=== PATIENT | female | born 1945 | race Caucasian/White ===

== ENCOUNTER 2016-03-22 10:15 | Inpatient (IN) | payer OTHER ==
[~2016-03-22] VITALS: Ht 161.3 cm; Wt 144.0 kg
[~2016-03-22 10:15] MED LIST: AMLODIPINE BESY10 MG PO; ASPIR-LOW81 MG PO; ATENOLOL50 MG PO; ATORVASTATIN CA80 MG PO; COUMADIN1 MG PO; FLOVENT DISKUS1 DIS2 IH; FUROSEMIDE40 MG PO; GLIPIZIDE XL10 MG PO; HUMULIN N100 UNITS/ SC; HYDROCORTISONE60 GM TP; LIPITOR80 MG PO; LOSARTAN POTAS100 MG PO; LOVENOX120 MG/0.8 SC
[2016-03-22 11:13] LABS: POINT-OF-CARE METER ID UU13113778
[2016-03-22 13:09] LABS: HEMATOCRIT 39.6 % (36.0-46.0); MCH 28.5 PG (29.0-34.0); MCHC 32.1 G/DL (30.0-36.0); MCV 88.8 FL (83-99); MEAN PLAT.VOLUME 11.9 uM^3 (9.5-12.4); PLATELET COUNT 162 K/uL (156-360); RBC DIS.WIDTH-CV 14.5 % (11.8-14.6); RBC DIS.WIDTH-SD 45.6 % (39-53); RED BLOOD COUNT 4.46 M/uL (3.80-5.20); WHITE BLOOD COUNT 8.3 K/uL (4.1-10.2)
[2016-03-22 13:27] LABS: CHLORIDE 103 mEq/L (99-109); SODIUM 141 mEq/L (136-147)
[2016-03-22 13:29] LABS: GLUCOSE 210 mg/dL (70-99)
[2016-03-22 13:30] LABS: ANION GAP 12 MEQ/L (2-14)
[2016-03-22 13:33] LABS: GFR ESTIMATE (CALCULATED) 31 mL/min/
[2016-03-22 13:34] LABS: UREA NITROGEN (BUN) 37 mg/dL (9-23)
[2016-03-22 13:54] LABS: TROP-I INTERPRETATION NEGATIVE; TROPONIN-I 0.19 ng/mL (0.0-0.30)
[2016-03-22 17:38] LABS: PROTHROMBIN TIME 10.3 (9.2-11.2)
[2016-03-22 17:52] LABS: PTT 18.9 (25-32)
[2016-03-22] MEDS ORDERED: LO-DOSE ASPIRIN81 M1 PO (18:25)
[2016-03-22] MEDS ORDERED: HYDROCHLOROTH12.5 M3 PO (18:27)
[2016-03-22 20:25] VITALS: BP 173/83
[2016-03-23] VITALS (8 sets, daily range): BP systolic 118–146; BP diastolic 51–98
[2016-03-23 08:25] LABS: HEMATOCRIT 39.6 % (36.0-46.0); MCH 28.2 PG (29.0-34.0); MCHC 31.6 G/DL (30.0-36.0); MCV 89.2 FL (83-99); MEAN PLAT.VOLUME 12.4 uM^3 (9.5-12.4); PLATELET COUNT 188 K/uL (156-360); RBC DIS.WIDTH-CV 14.7 % (11.8-14.6); RBC DIS.WIDTH-SD 47.6 % (39-53); RED BLOOD COUNT 4.44 M/uL (3.80-5.20); WHITE BLOOD COUNT 9.2 K/uL (4.1-10.2)
[2016-03-23 08:33] LABS: INTER. NORMALIZED RATIO 1.1; PROTHROMBIN TIME 10.8 (9.2-11.2)
[2016-03-23 09:24] LABS: TROP-I INTERPRETATION NEGATIVE; TROPONIN-I 0.21 ng/mL (0.0-0.30)
[2016-03-23 11:45] LABS: ALKALINE PHOSPHATASE 118 IU/L (3-129); ANION GAP 10 MEQ/L (2-14); CHLORIDE 103 MEQ/L (99-109); GFR ESTIMATE (CALCULATED) 39 mL/min/; GLUCOSE 82 mg/dL (70-99); POTASSIUM 4.2 MEQ/L (3.7-5.4); SAMPLE HEMOLYSIS CHECK 0; SAMPLE ICTERIC CHECK 0; SAMPLE LIPEMIA CHECK 0; SODIUM 141 MEQ/L (136-147); TOTAL BILIRUBIN 0.5 MG/DL (0.0-1.0); UREA NITROGEN (BUN) 31 mg/dL (9-23)
[2016-03-24 03:39] VITALS: BP 130/61
[2016-03-24 04:31] LABS: HEMATOCRIT 37.5 % (36.0-46.0); MCH 28.2 PG (29.0-34.0); MCHC 31.5 G/DL (30.0-36.0); MCV 89.7 FL (83-99); MEAN PLAT.VOLUME 12.5 uM^3 (9.5-12.4); PLATELET COUNT 196 K/uL (156-360); RBC DIS.WIDTH-CV 14.7 % (11.8-14.6); RBC DIS.WIDTH-SD 46.7 % (39-53); RED BLOOD COUNT 4.18 M/uL (3.80-5.20); WHITE BLOOD COUNT 9.6 K/uL (4.1-10.2)
[2016-03-24 04:38] LABS: INTER. NORMALIZED RATIO 1.1
[2016-03-24 04:55] LABS: CHLORIDE 103 mEq/L (99-109); POTASSIUM 4.1 mEq/L (3.7-5.4); SODIUM 142 mEq/L (136-147)
[2016-03-24 04:59] LABS: ANION GAP 12 MEQ/L (2-14)
[2016-03-24 05:00] LABS: TOTAL BILIRUBIN 0.5 mg/dL (0.0-1.0)
[2016-03-24 05:01] LABS: ALKALINE PHOSPHATASE 130 IU/L (3-129); GFR ESTIMATE (CALCULATED) 28 mL/min/
[2016-03-24 05:02] LABS: UREA NITROGEN (BUN) 39 mg/dL (9-23)
[2016-03-24 05:06] LABS: GLUCOSE 156 mg/dL (70-99)
[2016-03-24 07:41] VITALS: BP 169/72
[2016-03-24 11:26] VITALS: BP 144/61
[2016-03-24 16:12] VITALS: BP 106/64
[2016-03-24 20:09] VITALS: BP 132/74
[2016-03-24 23:11] VITALS: BP 122/84
[2016-03-25 04:01] VITALS: BP 139/65
[2016-03-25 07:08] LABS: HEMATOCRIT 36.3 % (36.0-46.0); MCH 28.1 PG (29.0-34.0); MCHC 31.1 G/DL (30.0-36.0); MCV 90.3 FL (83-99); MEAN PLAT.VOLUME 12.8 uM^3 (9.5-12.4); PLATELET COUNT 140 K/uL (156-360); RBC DIS.WIDTH-SD 48.8 % (39-53); RED BLOOD COUNT 4.02 M/uL (3.80-5.20); WHITE BLOOD COUNT 7.5 K/uL (4.1-10.2)
[2016-03-25 07:41] LABS: INTER. NORMALIZED RATIO 1.7; PTT 86.3 (25-32)
[2016-03-25 08:15] LABS: PROTHROMBIN TIME 17.1 (9.2-11.2)
[2016-03-25 08:35] LABS: ALKALINE PHOSPHATASE 104 IU/L (3-129); ANION GAP 10 MEQ/L (2-14); CHLORIDE 105 MEQ/L (99-109); GFR ESTIMATE (CALCULATED) 31 mL/min/; GLUCOSE 141 mg/dL (70-99); POTASSIUM 4.1 MEQ/L (3.7-5.4); SAMPLE HEMOLYSIS CHECK 0; SAMPLE ICTERIC CHECK 0; SAMPLE LIPEMIA CHECK 0; SODIUM 140 MEQ/L (136-147); UREA NITROGEN (BUN) 42 mg/dL (9-23)
[2016-03-25 08:36] LABS: TOTAL BILIRUBIN 0.3 MG/DL (0.0-1.0)
[2016-03-25 11:46] VITALS: BP 135/64
[2016-03-25 20:13] VITALS: BP 166/70
[2016-03-25 23:30] VITALS: BP 142/63
[2016-03-26 04:01] VITALS: BP 135/60
[2016-03-26 07:23] LABS: HEMATOCRIT 34.7 % (36.0-46.0); MCHC 31.1 G/DL (30.0-36.0); MCV 89.9 FL (83-99); RBC DIS.WIDTH-CV 15.1 % (11.8-14.6); RBC DIS.WIDTH-SD 48.9 % (39-53); RED BLOOD COUNT 3.86 M/uL (3.80-5.20); WHITE BLOOD COUNT 6.8 K/uL (4.1-10.2)
[2016-03-26 07:33] LABS: INTER. NORMALIZED RATIO 3.2; PROTHROMBIN TIME 34.3 (9.2-11.2)
[2016-03-26 07:37] VITALS: BP 152/80; BP 157/77
[2016-03-26 07:37] LABS: MEAN PLAT.VOLUME 12.1 uM^3 (9.5-12.4)
[2016-03-26] MEDS ORDERED: COUMADIN2.5 MG PO (07:39)
[2016-03-26] MEDS ORDERED: COUMADIN1 MG PO (07:39)
[2016-03-26 07:47] LABS: PLATELET COUNT 190 K/uL (156-360)
[2016-03-26 08:53] LABS: ALKALINE PHOSPHATASE 107 IU/L (3-129); ANION GAP 12 MEQ/L (2-14); CHLORIDE 107 MEQ/L (99-109); GFR ESTIMATE (CALCULATED) 36 mL/min/; GLUCOSE 135 mg/dL (70-99); POTASSIUM 4.4 MEQ/L (3.7-5.4); SAMPLE HEMOLYSIS CHECK 0; SAMPLE ICTERIC CHECK 0; SAMPLE LIPEMIA CHECK 0; SODIUM 141 MEQ/L (136-147); TOTAL BILIRUBIN 0.3 MG/DL (0.0-1.0); UREA NITROGEN (BUN) 41 mg/dL (9-23)
== END 2016-03-26 10:29 | disposition home or self-care (01) | DRG 176 ==
LOC: EME 10:15 → 2EAST 17:48 → EDOF 17:48 → 2EAST 19:16
PROVIDERS: Emergency Medicine; Internal Medicine
DX: I26.99 Other pulmonary embolism without acute cor pulmonale (principal); I82.4Z2 Acute embolism and thrombosis of unspecified deep veins of left distal lower extremity; E66.9 Obesity, unspecified; Z68.43 Body mass index [BMI] 50.0-59.9, adult; I10 Essential (primary) hypertension; E78.5 Hyperlipidemia, unspecified; E11.65 Type 2 diabetes mellitus with hyperglycemia; M79.605 Pain in left leg; R06.02 Shortness of breath; Z86.718 Personal history of other venous thrombosis and embolism; Z88.0 Allergy status to penicillin; Z87.891 Personal history of nicotine dependence
CPT/HCPCS: 71020; 78582; 80048; 80053; 82272; 82948; 84484; 85027; 85610; 85730; 93005; 93971; 94799; 99281; 99285; A9540; A9567; J1815; J7030